=== PATIENT | female | born 1985 | race Caucasian/White ===

== ENCOUNTER 2019-08-10 20:30 | Inpatient (IN) | payer BC ==
[2019-08-10] MEDS ORDERED: Lactated Ringers 1000 ML Bag* 1,000 ML IV ONE (20:56)
--- NOTE | 2019-08-10 21:04 | HP ---
General Information - Reason for Visit IUP at 40-6/7 in labor, GBS positive - General Information Maternal Age: 34 Grav: 3 Para: 2 SAB: 0 IEA: 0 Estimated Due Date: 08/04/19 Determined By: LMP Gestational Age in Weeks/Days: 40-6/7 Maternal Blood Type and Rh: B Positive - Results this Serology/RPR Result: Non-Reactive Rubella Result: Immune HBsAg Result: Negative HIV Result: Negative GBS Culture Result: Positive Past Medical History Delivery History: Hx Uncomplicated Vaginal Delivery Delivery History Comment: 10/2012 liveborn male. 9lbs 5oz. Delivered at [facility] 03/2016 liveborn female. 8lbs 5oz. Delivered at [facility] Pertinent Past Medical History: Non-Contributory Pertinent Past Surgical History: See Records Past Surgical History Comment: 2013 Right hand ORIF Pertinent Family History: See Records Family History Comment: PGM: , bone and breast cancer PGF: , [place] - Antepartal Records Antepartal Records: Reviewed, Complicated by: - Uterine fibroid, stable by sono. GBS positive Review of Systems Constitutional: Uncomfortable - with UCs CV Complaint: No Respiratory: Shortness of Breath: No Gastrointestinal: No Nausea/Vomiting, Normal Bowel Movement Genitourinary: No Dysuria, No Bleeding, No Leaking Fluid Musculoskeletal: No Epigastric Pain, Contractions Neurological: No Headache, No Visual Changes Movement: Normal Exam Allergies/Adverse Reactions: Allergies No Known Allergies Allergy (Verified 08/10/19 20:35) BP 128/75 HR 81 RR 18 T 98.5 SpO2 100% on RA - Measurements Height: 5 ft 8 in Weight: 250 lb Weight in lbs: [id number] Body Mass Index (BMI): 38.0 Pre- Weight: 207 lb Weight Gained This : 43 lbs and 0 ozs - Exam Breast: Breast Exam Deferred CVA: No CVA Tenderness Extremities: Edema - 2+ pitting edema in feet and ankles bilaterally Heart: Normal Rhythm/Heart Sounds HEENT: No Significant Findings Lungs: Clear Bilaterally Rectal: Rectal Exam Deferred Reflexes: DTR 2+ Thyroid: No Thyromegaly - Abdominal Exam Abdomen Exam: Non-Tender, Fundal Height Consistent with Dates - Ultrasound/Biophysical Profile Ultrasound Status: Not Done Targeted Exam Findings See L&D Outpatient Visit Provider Note for Findings: N/A Estimated Weight: EFW 8.5-9lbs by Noris Cervical Exam: 6cm, 7cm Effacement: 100% Station: -1 Presenting Part: Vertex Membrane Status: Intact Sterile Speculum Exam: Not done Bleeding/Discharge: Bloody Show EFM Findings - External Monitor Findings Baseline Heart Rate: 120 External Monitor Findings: Accelerations Present, No Pattern of Variable or Late Decelerations, Variability Moderate, Baseline Stable External Monitor Findings Comment: No evidence of metabolic acidemia Contractions: Regular, Moderate, Strong Contraction Frequency: q 3-4 min Assessment/Plan - Assessment IUP at 40-6/7 in labor No evidence of metabolic acidemia GBS + - Obstetrical Risk Factors Obstetrical Risk Factors: GBS Positive, Post-Dates, Obesity - Plan Plan: Admit - Anticipate Vaginal Delivery Plan Comment: Admit. Place IV and begin GBS prophylaxis. Pt desires trial of nitrous oxide. Anticipate progression to . Dr. Colmenares aware of pt presence and condition - Date/Time of Admission Date of Admission: 08/10/19 Time of Admission: 20:50
[2019-08-10 21:07] LABS: ABS Basophils 0.1 10^3/ul (0-0.2); ABS Eosinophils 0.1 10^3/ul (0-0.6); ABS Lymphocytes 2.7 10^3/ul (1.0-4.8); ABS Monocytes 0.6 10^3/ul (0-0.8); ABS Neutrophils 6.1 10^3/ul (1.5-7.7); Eosinophil % 0.6 %; Hematocrit 39 % (35-47); Hemoglobin 13.4 g/dL (12.0-16.0); Lymphocyte % 28.2 %; Mean Corpuscular HGB Conc 35 g/dL (31-36); Mean Corpuscular Hemoglobin 31 pg (27-31); Mean Corpuscular Volume 91 fL (80-97); Mean Platelet Volume 10.1 fL (7.4-10.4); Platelet Count 194 10^3/uL (150-450); Red Cell Distribution Width 13 % (10-15); White Blood Count 9.4 10^3/uL (3.5-10.8)
[2019-08-10 21:28] LABS: Urine Benzodiazepine Screen None Detected (None Detect); Urine Opiates Screen None Detected (None Detect)
[2019-08-10] MEDS ORDERED: Penicillin G Potassium IV* 5,000,000 UNITS in NS 0.9% 100 ML* 100 ML IVPB ONE (21:30)
[2019-08-10] MEDS ORDERED: Oxytocin in LR* 0 UNITS/0 ML BAG IVPB ONE (22:21)
[2019-08-10] MEDS ORDERED: Acetaminophen TAB* 325 MG PO PRN (23:27)
[2019-08-10] MEDS ORDERED: Witch Hazel PAD* JAR TOPICAL PRN (23:27)
[2019-08-10] MEDS ORDERED: Glycerin ADULT SUPP PR PRN (23:27)
[2019-08-10] MEDS ORDERED: Dibucaine 1% 28.35 GM TUBE PR PRN (23:27)
--- NOTE | 2019-08-10 23:34 | PROCNOTE ---
[facility] OB: Delivery Note - Delivery A Date of : 08/10/19 Time of : 23:05 [place] Sex: Male - "Federico" Score 1 Minute: 9 Score 5 Minutes: 10 Gestational Age in Weeks and Days at Delivery: 40 Weeks and 6 Days Delivery Method: Spontaneous Vaginal Labor: Spontaneous Did Patient attempt ?: N/A, No Previous Amniotic Fluid: Meconium Estimated Blood Loss: 350 Anesthesia/Analgesia: Nitrous-Labor Delivered By: Howard Arciniega - Nursery Level of Nursery: Regular/Bedside - Perineum Perineal Injury: None/Intact Perineal Repair: None - Events Delivery Events of Note: Partial Course of Antibiotics - Additional Delivery Notes Additional Delivery Notes: Pt admitted in labor with expected progression to complete. Length of active phase 4 hours, 12 min. Pushed x 1 min. liveborn male. Slow, controlled delivery of head. OA to MCKENNA. Shoulders followed easily. Nuchal cord x 1 looped off after delivery. vigorous with spontaneous cry. HR>110bpm. Delivered to maternal abdomen. Cord clamped x 2 and cut by FOB when pulsations ceased. Spontaneous delivery intact placenta. Membranes complete. Fundus firm to massage with minimal bleeding noted. Perineum intact. No repair needed as above. EBL 350mL. At time of note mother and in stable condition. Planning to breast feed.
[2019-08-10] MEDS ORDERED: Lactated Ringers 1000 ML Bag* 1,000 ML IV SCH (23:45)
[2019-08-10] MEDS: Ibuprofen TAB* 600 MG PO SCH (23:47)
[2019-08-11] MEDS ORDERED: Penicillin G Potassium IV* 3,000,000 UNITS in NS 0.9% 100 ML* 100 ML IVPB SCH (01:30)
[2019-08-11] MEDS: Docusate CAP* 100 MG PO SCH ×3 (07:38→21:35)
[2019-08-11] MEDS: Ibuprofen TAB* 600 MG PO SCH ×3 (07:38→21:35)
[2019-08-11 08:13] LABS: ABS Lymphocytes 2.4 10^3/ul (1.0-4.8); ABS Monocytes 0.6 10^3/ul (0-0.8); ABS Neutrophils 7.8 10^3/ul (1.5-7.7); Eosinophil % 0.3 %; Hematocrit 37 % (35-47); Hemoglobin 12.5 g/dL (12.0-16.0); Lymphocyte % 21.9 %; Mean Corpuscular HGB Conc 34 g/dL (31-36); Mean Corpuscular Hemoglobin 31 pg (27-31); Mean Corpuscular Volume 91 fL (80-97); Mean Platelet Volume 9.5 fL (7.4-10.4); Platelet Count 184 10^3/uL (150-450); Red Blood Count 4.05 10^6 /uL (3.70-4.87); Red Cell Distribution Width 13 % (10-15); White Blood Count 10.8 10^3/uL (3.5-10.8)
[2019-08-11] MEDS ORDERED: Ferrous Gluconate TAB* 324 MG TAB PO SCH (09:00)
[2019-08-12 07:37] VITALS: BP 110/65
[2019-08-12] MEDS: Docusate CAP* 100 MG PO SCH ×2 (08:06→14:06)
[2019-08-12] MEDS: Ibuprofen TAB* 600 MG PO SCH ×2 (08:06→14:06)
== END 2019-08-12 18:30 | disposition home or self-care (01) | DRG 560 ==
LOC: MCHOBOUT 20:30 → MCHOB 20:52
PROVIDERS: ADMIT Midwife; ATTEND Midwife
PROC: 10E0XZZ Delivery of Products of Conception, External Approach (ICD-10-PCS; principal; 2019-08-10)
PROC: 10907ZC Drainage of Amniotic Fluid, Therapeutic from Products of Conception, Via Natural or Artificial Opening (ICD-10-PCS; 2019-08-10)
DX: O99.824 Streptococcus B carrier state complicating childbirth (principal); Z37.0 Single live birth; O48.0 Post-term pregnancy; Z3A.40 40 weeks gestation of pregnancy; O99.214 Obesity complicating childbirth; O77.0 Labor and delivery complicated by meconium in amniotic fluid; O69.81X0 Labor and delivery complicated by cord around neck, without compression, not applicable or unspecified
CPT/HCPCS: 36415; 80307; 85025; 86850; 86900; 86901; A9270-GY; G0480; J2540